=== PATIENT | female | born 1960 | race Caucasian/White ===

== ENCOUNTER 2023-05-02 13:40 | Outpatient (CLI) | payer BC ==
[2023-05-02 14:43] LABS: #Eosinphils 0.1 10x3/uL (0.0-0.5); #Monocytes 0.7 10x3/uL (0.0-1.1); #Neutrophils 2.3 10x3/uL (1.5-8.4); %Basophils 0.6 % (0.0-2.0); %Eosinophils 2.6 % (0.0-6.0); %Lymphocytes 40.9 % (18.0-47.0); %Monocytes 13.2 % (0.0-10.0); %Neutrophils 42.5 % (40.0-75.0); Hematocrit 42.3 % (34.9-44.5); Hemoglobin 13.9 g/dL (12.0-15.5); Mean Corpuscular HGB CONC 32.9 g/dL (32.0-36.0); Mean Corpuscular Hemoglobin 30.8 pg (27.0-33.0); Mean Corpuscular Volume 93.8 fl (81.6-98.3); Mean Platelet Volume 9.7 fl (7.4-10.4); Platelet Count 198 10x3/uL (150-450); RBC Distribution Width 12.2 % (11.5-14.5); Red Blood Cell (RBC) Count 4.51 10x6/uL (3.90-5.03); White Blood Cell (WBC) Count 5.3 10x3/uL (3.5-10.5)
[2023-05-02 14:47] LABS: Anion Gap 12 mmol/L (10-20); BUN (Urea Nitrogen) 24 mg/dL (9.8-20.1); Calc. Creatinine Clearance 0 mL/min (70-130); Calcium 9.2 mg/dL (7.8-10.44); Carbon Dioxide 26 mmol/L (23-31); Chloride 105 mmol/L (98-107); Estimated GFR 66; Glucose 121 mg/dL (80-115); Potassium 3.9 mmol/L (3.5-5.1); Sodium 139 mmol/L (136-145)
== END 2023-05-02 13:41 | disposition home or self-care (01) ==
LOC: LABBT 13:40
PROVIDERS: ATTEND Orthopaedic Surgery Hand Surgery
DX: Z01.818 Encounter for other preprocedural examination (principal); M65.332 Trigger finger, left middle finger
CPT/HCPCS: 80048; 85025; 93005; 93010

== ENCOUNTER 2023-08-06 09:31 | Outpatient (CLI) | payer BC ==
[2023-08-06 13:10] LABS: #Basophils 0.04 10x3/uL (0.0-0.2); #Monocytes 0.51 10x3/uL (0.0-1.1); #Neutrophils 1.87 10x3/uL (1.5-8.4); %Basophils 0.9 % (0.0-2.0); %Eosinophils 2.2 % (0.0-6.0); %Lymphocytes 44.9 % (18.0-47.0); %Monocytes 11.1 % (0.0-10.0); %Neutrophils 40.7 % (40.0-75.0); Hematocrit 42.1 % (34.9-44.5); Hemoglobin 14.2 g/dL (12.0-15.5); Mean Corpuscular HGB CONC 33.7 g/dL (32.0-36.0); Mean Corpuscular Hemoglobin 31.8 pg (27.0-33.0); Mean Corpuscular Volume 94.2 fL (81.6-98.3); Mean Platelet Volume 10.5 fL (7.4-10.4); Platelet Count 246 10x3/uL (150-450); RBC Distribution Width 12.6 % (11.5-14.5); Red Blood Cell (RBC) Count 4.47 10x6/uL (3.90-5.03); White Blood Cell (WBC) Count 4.6 10x3/uL (3.5-10.5)
== END 2023-08-06 09:32 | disposition home or self-care (01) ==
LOC: LABBT 09:31
PROVIDERS: ATTEND Orthopaedic Surgery Hand Surgery
DX: Z01.818 Encounter for other preprocedural examination (principal); G56.01 Carpal tunnel syndrome, right upper limb
CPT/HCPCS: 85025; 93005; 93010

== ENCOUNTER 2023-08-09 05:34 | Day surgery (SDC) | payer BC ==
[2023-08-06 10:02] VITALS: BMI 28.8
[2023-08-09] MEDS ORDERED: Bupivacaine PF 0.5% 30 ML VIAL ONE (06:44)
[2023-08-09] MEDS ORDERED: Bacitracin Zinc Ointment 30 gm TUBE ONE (06:44)
[2023-08-09] MEDS ORDERED: Midazolam HCl 2 mg/2 ml Vial ONE (07:06)
[2023-08-09] MEDS ORDERED: CEFAZOLIN 2 GM VIAL ONE (07:06)
[2023-08-09] MEDS ORDERED: Sodium Chloride 0.9% 100 ML ONE (07:06)
[2023-08-09] MEDS ORDERED: Ketorolac Tromethamine 30 MG (1 mL) VIAL ONE ×2 (07:10→08:19)
[2023-08-09] MEDS ORDERED: Ondansetron PF 4 MG/2 ML Vial ONE (07:10)
[2023-08-09] MEDS ORDERED: Lidocaine 1% PF 5 ML VIAL ONE (07:10)
[2023-08-09] MEDS ORDERED: fentaNYL PF 100 MCG/2 ML SYRINGE ONE (07:10)
[2023-08-09] MEDS ORDERED: Metoclopramide HCl 10 MG (2 mL) VIAL ONE (07:10)
[2023-08-09] MEDS ORDERED: PROPOFOL 20 ML ONE (07:11)
[2023-08-09] MEDS ORDERED: ePHEDrine Sulfate 50 MG/10 ML VIAL ONE (07:32)
[2023-08-09] MEDS ORDERED: PHENYLEPHRINE-NS 100 MCG/ML 10 ML SYRINGE ONE (07:42)
== END 2023-08-09 09:00 | disposition home or self-care (01) ==
LOC: SDC 05:34
PROVIDERS: ATTEND Orthopaedic Surgery Hand Surgery
PROC: 01N50ZZ Release Median Nerve, Open Approach (ICD-10-PCS; principal; 2023-08-09)
DX: G56.01 Carpal tunnel syndrome, right upper limb (principal); Z79.899 Other long term (current) drug therapy; Z88.1 Allergy status to other antibiotic agents; Z91.011 Allergy to milk products; Z88.8 Allergy status to other drugs, medicaments and biological substances
CPT/HCPCS: A6223; J0665; J1885; J2250; J2405; J2704; J2765; J3490